=== PATIENT | male | born 1980 | race American Indian/Alaskan Native ===

== ENCOUNTER 2019-01-20 19:23 | Emergency (ER) | payer OTHER ==
[2019-01-20 19:27] VITALS: BP 118/78
--- NOTE | 2019-01-20 20:20 | Emergency Department Report ---
ED Lower Extremity HPI - General Chief Complaint: Extremity Injury, Lower Stated Complaint: RIGHT ANKLE PAIN Time Seen by Provider: 01/20/19 20:01 Source: patient Mode of arrival: Ambulatory Limitations: No Limitations - History of Present Illness Initial Comments: Patient is a 38-year-old male that presents emergency room with complaints of right ankle pain 3 months. Patient states she started he had x-rays didn't show anything. Patient states he would like to have an MRI today in the ER. Patient states the pain is a 6 out of 10. Patient states the pain is worse with movement and better with rest. Patient states he has not seen an orthopedist for this problem. MD Complaint: ankle injury -: Sudden Injury: Ankle: Right Type of Injury: inversion Place: home Severity: moderate, severe Severity scale (0 -10): 6 Improves With: NSAID, rest Worsens With: weight bearing, movement, palpation Context: walking Associated Symptoms: swelling, able to partially bear weight Treatments Prior to Arrival: cold therapy, bandage, NSAIDS - Related Data Allergies Allergy/AdvReac Type Severity Reaction Status Date / Time No Known Allergies Allergy Unverified 01/20/19 19:25 ED Review of Systems ROS: Stated complaint: RIGHT ANKLE PAIN Other details as noted in HPI Constitutional: denies: chills, fever Eyes: denies: eye pain, eye discharge, vision change ENT: denies: ear pain, throat pain Respiratory: denies: cough, shortness of breath, wheezing Cardiovascular: denies: chest pain, palpitations Endocrine: no symptoms reported Gastrointestinal: denies: abdominal pain, nausea, diarrhea Genitourinary: denies: urgency, dysuria Musculoskeletal: denies: back pain, joint swelling, arthralgia Skin: denies: rash, lesions Neurological: denies: headache, weakness, paresthesias Psychiatric: denies: anxiety, depression Hematological/Lymphatic: denies: easy bleeding, easy bruising ED Past Medical Hx - Past Medical History Previous Medical History?: Yes Additional medical history: Chronic right ankle pain - Surgical History Past Surgical History?: Yes Additional Surgical History: carpal tunnel surgery - Family History Family history: no significant - Social History Smoking Status: Current Every Day Smoker Substance Use Type: None ED Physical Exam - General Limitations: No Limitations General appearance: alert, in no apparent distress - Head Head exam: Present: atraumatic, normocephalic - Eye Eye exam: Present: normal appearance - ENT ENT exam: Present: mucous membranes moist - Neck Neck exam: Present: normal inspection - Respiratory Respiratory exam: Present: normal lung sounds bilaterally. Absent: respiratory distress - Cardiovascular Cardiovascular Exam: Present: regular rate, normal rhythm. Absent: systolic murmur, diastolic murmur, rubs, gallop - GI/Abdominal GI/Abdominal exam: Present: soft, normal bowel sounds - Rectal Rectal exam: Present: deferred - Extremities Exam Extremities exam: Present: normal inspection, tenderness, normal capillary refill, other (normal ankle on inspection however tenderness to the posterior lateral malleolus.). Absent: pedal edema, joint swelling, calf tenderness - Back Exam Back exam: Present: normal inspection - Neurological Exam Neurological exam: Present: alert, oriented X3 - Psychiatric Psychiatric exam: Present: normal affect, normal mood - Skin Skin exam: Present: warm, dry, intact, normal color. Absent: rash ED Course Vital Signs 01/20/19 01/20/19 19:25 19:28 Temperature 98.3 F 98.4 F Pulse Rate 64 64 Respiratory 18 18 Rate Blood Pressure 118/78 118/78 O2 Sat by Pulse 96 100 Oximetry - Reevaluation(s) Reevaluation #1: Initial evaluation done. During initial violation. Patient states he does not want another x-ray but he would rather have an MRI. I explained to patient that we are not able to do an MRI of an ankle in the emergency room because it does not warrant an emergency MRI and the patient does not have an emergency medical condition. 01/20/19 20:22 ED Lower Extremity MDM - Medical Decision Making Patient is a 38-year-old male that presents emergency room with complaints of right ankle pain for 3 months. Patient has been instructed to follow-up with an orthopedist and that he will need an MRI. I explained to patient that we are unable to do MRIs in the emergency room. Patient does not currently have an emergency medical condition and will be discharged. Patient given discharge instructions. - Differential Diagnosis ankle pain. Ligament injury Critical care attestation.: If time is entered above; I have spent that time in minutes in the direct care o f this critically ill patient, excluding procedure time. ED Disposition Clinical Impression: Ankle pain, chronic Qualifiers: Laterality: right Qualified Code(s): M25.571 - Pain in right ankle and joints of right foot; G89.29 - Other chronic pain Disposition: DC-01 TO HOME OR SELFCARE Is pt being admited?: No Does the pt Need Aspirin: No Condition: Stable Instructions: Ankle Sprain (ED), Tendinitis (ED), Magnetic Resonance Imaging (ED) Additional Instructions: Patient to follow up with primary care in 2-3 days. Patient to follow-up with orthopedist as soon as possible. Patient to return to ER if condition worsens. Patient to rest. Patient to take Tylenol or ibuprofen when necessary pain Referrals: ALAN MATHIS MD [Primary Care Provider] - 2-3 Days MENDEL MENEZES MD [Staff Physician] - 2-3 Days Time of Disposition: 20:24
== END 2019-01-20 20:52 | disposition home or self-care (01) ==
LOC: ED 19:23
DX: G89.29 Other chronic pain (principal); M25.571 Pain in right ankle and joints of right foot; F17.200 Nicotine dependence, unspecified, uncomplicated